=== PATIENT | female | born 1995 | race Caucasian/White ===

== ENCOUNTER → 2019-09-30 | Outpatient (CLI) | payer MEDICAID, SELFPAY ==
[2019-09-30 17:56] LABS: Color, Urine Yellow (Yellow); Glucose, Dipstick Normal (Normal); Ketone-Dipstick Negative (Negative); Leukocyte Esterase-Dipstick Negative /ul (Negative); Nitrite-Dipstick Negative (Negative); Occult Blood-Urine Negative /ul (Negative); Protein-Dipstick Negative (Negative); Urine Bilirubin Dipstick Negative (Negative); Urine Clarity Sl. Cloudy (Clear); Urine Urobilinogen Normal (Normal)
[2019-09-30 18:01] LABS: Absolute Neutrophil Count 6.7 X10^3/uL (2.0-7.7); Basophil# 0.06 X10^3/uL; Basophil% 0.6 % (0-1); Eosinophil# 0.32 X10^3/uL; Hematocrit 40.6 % (37-47); Hemoglobin 13.8 g/dL (12.0-15.0); Lymphocyte % 25.3 % (19-41); Mean Corpuscular Hgb 30.9 pg (27.0-32.0); Mean Platelet Vol. 9.5 fl (6.2-12.0); Monocyte# 0.87 X10^3/uL; Monocyte% 8.1 % (0-10); NRBC Flagged by Analyzer 0 % (0-5); Neutrophil # 6.69 X10^3/uL (2.7-7.7); Neutrophil % 62.6 % (47-70); Platelet Count 265 K/mm3 (150-450); RBC Distribution Width CV 12.7 % (11.6-14.6); RBC Distribution Width SD 41.4 fl (35.1-43.9); Red Blood Count 4.46 M/mm3 (4.2-5.4); White Blood Count 10.7 K/mm3 (4.4-11.0)
[2019-09-30 18:13] LABS: Amphetamine Urine VISTA NEGATIVE (<1000 ng/mL); Barbiturate Urine VISTA NEGATIVE (< 200 ng/mL); Benzodiazepine Urine VISTA NEGATIVE (< 200 ng/mL); Cocaine Urine VISTA NEGATIVE (< 300 ng/mL); Ecstacy Urine VISTA NEGATIVE (< 500 ng/mL); Methadone Urine VISTA NEGATIVE (< 300 ng/mL); PCP Urine VISTA NEGATIVE (< 25 ng/mL); THC Urine VISTA POSITIVE (< 50 ng/mL); Vista UDS pH Range 6
[2019-09-30 18:21] LABS: Thyroid Stim Hormone (TSH) 0.71 uIU/mL (0.358-3.74)
[2019-09-30 19:43] LABS: Chlamydia Trachomatis by PCR Negative (Negative); Neisserai gonorrhoeae by PCR Negative (Negative); Probe Check PASS; Sample Adequacy Control PASS; Specimen Processing Control PASS
[2019-10-01 08:49] LABS: HIV - WCH Non-Reactive (Nonreactive); Hepatitis B Surface Antigen Non-Reactive (Nonreactive); Hepatitis C Antibody Non-Reactive (Nonreactive); Progesterone Level 38.55 ng/mL (See Comment); Rubella IgG 41.1 IU/mL
[2019-10-07 08:05] LABS: Prenatal RPR NONREACTIVE (NONREACTIVE)
== END | disposition home or self-care (01) ==
PROVIDERS: Referring Provider Obstetrics & Gynecology; Visit Provider Obstetrics & Gynecology
DX: Z34.82 Encounter for supervision of other normal pregnancy, second trimester (principal); Z11.3 Encounter for screening for infections with a predominantly sexual mode of transmission
CPT/HCPCS: 80307; 81002; 84144; 84443; 85025; 86703; 86762; 86803; 87340; 87491; 87591

== ENCOUNTER → 2020-01-12 15:16 | Outpatient (CLI) | payer MEDICAID, SELFPAY ==
[2020-01-12 17:31] LABS: Hematocrit 32.8 % (37-47); Hemoglobin 10.5 g/dL (12.0-15.0); Mean Corpuscular Hgb 30.3 pg (27.0-32.0); Mean Corpuscular Volume 94.5 fL (81-99); Mean Platelet Vol. 9.9 fl (6.2-12.0); Platelet Count 261 K/mm3 (150-450); RBC Distribution Width SD 41.2 fl (35.1-43.9); Red Blood Count 3.47 M/mm3 (4.2-5.4); White Blood Count 9.9 K/mm3 (4.4-11.0)
[2020-01-12 17:54] LABS: Glucose Challenge Gest 1H 50g 83 mg/dL (70-140)
== END ==
PROVIDERS: Visit Provider Obstetrics & Gynecology
DX: Z34.83 Encounter for supervision of other normal pregnancy, third trimester (principal)
CPT/HCPCS: 36415; 82950; 85027

== ENCOUNTER → 2020-03-31 17:51 | Outpatient (CLI) | payer MEDICAID, SELFPAY | PROVIDERS: PCP Specialist; Referring Provider Student in an Organized Health Care Education/Training Program; Visit Provider Student in an Organized Health Care Education/Training Program | DX: Z11.59 Encounter for screening for other viral diseases (principal) | CPT/HCPCS: C9803 ==

== ENCOUNTER → 2020-04-12 17:40 | Outpatient (CLI) | payer MEDICAID, SELFPAY | PROVIDERS: PCP Specialist; Visit Provider Student in an Organized Health Care Education/Training Program | DX: Z03.818 Encounter for observation for suspected exposure to other biological agents ruled out (principal) | CPT/HCPCS: 87635; C9803; U0003 ==

== ENCOUNTER 2020-04-17 10:50 | Inpatient (IN) | payer MEDICAID, SELFPAY ==
[2020-04-17] VITALS (30 sets, daily range): BP systolic 99–129; BP diastolic 53–74; PULSE 71–107; TEMP 36.8–37.8; O2SAT 95–100; BMI 26.8
[2020-04-17 12:21] LABS: Absolute Lymphocyte Count 1.75 X10^3/uL (0.83-4.51); Absolute Neutrophil Count 5.7 X10^3/uL (2.0-7.7); Basophil# 0.03 X10^3/uL; Basophil% 0.3 % (0-1); Eosinophil# 0.12 X10^3/uL; Eosinophils% 1.4 % (0-5); Hematocrit 33.4 % (37-47); Hemoglobin 10.3 g/dL (12.0-15.0); Lymphocyte # 1.75 X10^3/ul (4.0); Lymphocyte % 20.3 % (19-41); Mean Corp Hgb Conc 30.8 g/dL (32-36); Mean Corpuscular Hgb 26.3 pg (27.0-32.0); Mean Corpuscular Volume 85.2 fL (81-99); Mean Platelet Vol. 10.4 fl (6.2-12.0); Monocyte# 0.96 X10^3/uL; Monocyte% 11.1 % (0-10); NRBC Flagged by Analyzer 0 % (0-5); Neutrophil # 5.72 X10^3/uL (2.7-7.7); Neutrophil % 66.6 % (47-70); Platelet Count 257 K/mm3 (150-450); RBC Distribution Width CV 13.3 % (11.6-14.6); RBC Distribution Width SD 41.3 fl (35.1-43.9); Red Blood Count 3.92 M/mm3 (4.2-5.4); White Blood Count 8.6 K/mm3 (4.4-11.0)
[2020-04-17] MEDS: Oxytocin 30 units/NS 500 ml 30 UNITS/500 ML IV.SOLN IV (12:55)
[2020-04-17] MEDS: Lactated Ringers 1,000 ML 50 ML IV (12:55)
--- NOTE | 2020-04-17 13:00 | HP.PCM_ITS ---
History and Physical Date of Admission: 04/17/20 History of Present Illness 24 yo at 41/6w, with MARTIN 04/04/20 by LMP, presents for induction of labor. Denies VB, LOF, or regular contractions. +FM. Denies REVELES, vision changes, chest pain, dyspnea, nausea/emesis. This is complicated by: nothing Obstetrical History G1: FT G2: current _ Past Medical History Denies Medications PNV Past Surgical History Denies Social History Tobacco use: Denies Alcohol use: Denies Illicit drug use: Denies, pos THC on new OB visit Labs Blood type: A pos Rubella: immune Hep B: neg HIV: neg RPR: nonreactive GBS: neg 03/08, Allergies NKDA Review of Systems General: alert and oriented HEENT: _denies change of vision Heart/lungs: _denies CP, SOB GI: _denies nausea, vomiting, dysuria, diarrhea MSK: _denies calf pain, tenderness Physical Exam Vital Signs Temp Pulse BP Pulse Ox 04/17/20 12:32 84 97 04/17/20 12:27 91 97 04/17/20 12:22 98.8 F 94 99/55 L 95 General: a&o x3, NAD HEENT: normocephalic, atraumatic Cardio: no JVD Resp: no increased work in breathing Abdomen: soft, gravid, nontender Extremities: minimal edema CE: 4/60/-2 FHT: baseline 140s/mod variability/ + accels / - decels [place]: quiet Labs Laboratory Results 04/17/20 11:55 WBC 8.6 RBC 3.92 L Hgb 10.3 L Hct 33.4 L MCV 85.2 MCH 26.3 L MCHC 30.8 L RDW Std Deviation 41.3 RDW Coeff of Doc 13.3 Plt Count 257 MPV 10.4 Immature Gran % (Auto) 0.300 Neut % (Auto) 66.6 Lymph % (Auto) 20.3 [place] % (Auto) 11.1 H Eos % (Auto) 1.4 Baso % (Auto) 0.3 Absolute Neuts (auto) 5.7 Absolute Lymphs (auto) 1.75 Nucleated RBC % 0 COVID negative Assessment & Plan 24 yo at 41/6w, with MRATIN 04/04/20 by LMP, presents for induction of labor. Uncomplicated . Admit to L&D - Routine labor orders - Pitocin induction - GBS neg 03/08, . Will get rapid GBS now - CEFM -Does not desire epidural
[2020-04-17 15:08] LABS: Amphetamine Urine VISTA NEGATIVE (<1000 ng/mL); Barbiturate Urine VISTA NEGATIVE (< 200 ng/mL); Benzodiazepine Urine VISTA NEGATIVE (< 200 ng/mL); Cocaine Urine VISTA NEGATIVE (< 300 ng/mL); Ecstacy Urine VISTA NEGATIVE (< 500 ng/mL); Methadone Urine VISTA NEGATIVE (< 300 ng/mL); PCP Urine VISTA NEGATIVE (< 25 ng/mL); THC Urine VISTA NEGATIVE (< 50 ng/mL); Vista UDS pH Range 6
[2020-04-17 16:21] LABS: Group B Strep DNA By PCR Negative (Negative); Internal Control PASS; Probe Check PASS; Specimen Processing Control PASS
[2020-04-17] MEDS: Lactated Ringers 500 ML 999 ML IV (20:58)
[2020-04-17] MEDS: Oxytocin 30 units/NS 500 ml 30 UNITS/500 ML IV.SOLN 334 UNITS IV (21:21)
--- NOTE | 2020-04-17 21:44 | PCM.OPRPT ---
Vaginal Delivery Maternal Presentation: Medically Indicated Induction Method of Induction: Pitocin Medical Reason for Induction: - - Post dates Amniotic Membrane Rupture Type: Artificial Amniotic Fluid Description: Lightly stained meconium Final MARTIN: 04/04/20 Gestational age: 41 Weeks and 6 Days Date of Procedure: 04/17/20 Pre-Operative Diagnosis: Macias IUP at 41/6w Post-Operative Diagnosis: Macias IUP at 41/6w Surgery/ Procedure Performed: Spontaneous Vaginal Delivery Type of Anesthesia: - - Nitrous oxide Description of Procedure: Spontaneous vaginal delivery of viable male. Nuchal cord x1 loose, reduced. Baby to mom. Cord clamped and cut. Spontaneous delivery of placenta. Second degree laceration repaired in usual fashion after lidocaine injected. EBL 400cc. APGARS 8/9. Cord Vessel Description: 3 Vessels Infant A gender: Male
--- NOTE | 2020-04-17 21:48 | DCINST_ITS ---
<Mariano Anderson - Last Filed: 04/18/20 08:05> Additional Instructions: If you experience any of the following, contact your healthcare provider. * Bleeding that soaks a pad every hour for 2 hours * Fever 100.4 or higher * Unrelieved incision or abdominal pain * Swelling, redness, discharge or bleeding from your incision or epis iotomy site * Your incision begins to separate * Problems urinating (including inability to urinate or burning while urinating). * Visual changes * Severe headache * Flu-like symptoms * Pain or redness in one of both of your breasts * Pain, warmth, tenderness or swelling in your legs, especially the calf area * Frequent nausea and vomiting * Symptoms of depression or anxiety If you experience any of the following, call 911 or go to the nearest Emergency Room. * Chest pain * Problems breathing * Seizure activity * Partial or complete paralysis of a body part, slurred speech, weakness or drooping of the face, or a sudden inability to walk or hold your balance Allergies/Adverse Reactions: Allergies No Known Allergies Allergy (Verified 04/17/20 12:50) Primary Care Physician: Josie Dunlap MD [Primary Care Provider] - Test Results: Test results from this visit will be discussed in further detail at your follow- up appointment, if applicable. <Minal Anderson - Last Filed: 04/19/20 14:32> Discharge Activity: Return to Normal Activity, May not drive while taking narcotic pain medications., May Shower May resume sexual activity in: 6 weeks Weight Bearing Status: Weight bearing as tolerated Call your doctor if you observe: Fever of 101 or Higher, Inability to urinate, Inability to have a bowel movement, Using more than one pad per hour, Shortness of breath, Dizziness, Calf discomfort Additional Instructions: If you experience any of the following, contact your healthcare provider. * Bleeding that soaks a pad every hour for 2 hours * Fever 100.4 or higher * Unrelieved incision or abdominal pain * Swelling, redness, discharge or bleeding from your incision or episiotomy site * Your incision begins to separate * Problems urinating (including inability to urinate or burning while urinating). * Visual changes * Severe headache * Flu-like symptoms * Pain or redness in one of both of your breasts * Pain, warmth, tenderness or swelling in your legs, especially the calf area * Frequent nausea and vomiting * Symptoms of depression or anxiety If you experience any of the following, call 911 or go to the nearest Emergency Room. * Chest pain * Problems breathing * Seizure activity * Partial or complete paralysis of a body part, slurred speech, weakness or drooping of the face, or a sudden inability to walk or hold your balance Please Follow Up With: Minal Anderson, When: 2 week telehealth visit, 6 week in person PP visit Test Results: Test results from this visit will be discussed in further detail at your follow- up appointment, if applicable.
--- NOTE | 2020-04-17 21:48 | PCM.DCVAG ---
<Mariano Anderson - Last Filed: 04/18/20 08:05> Additional Instructions: If you experience any of the following, contact your healthcare provider. Bleeding that soaks a pad every hour for 2 hours Fever 100.4 or higher Unrelieved incision or abdominal pain Swelling, redness, discharge or bleeding from your incision or episiotomy site Your incision begins to separate Problems urinating (including inability to urinate or burning while urinating). Visual changes Severe headache Flu-like symptoms Pain or redness in one of both of your breasts Pain, warmth, tenderness or swelling in your legs, especially the calf area Frequent nausea and vomiting Symptoms of depression or anxiety If you experience any of the following, call 911 or go to the nearest Emergency Room. Chest pain Problems breathing Seizure activity Partial or complete paralysis of a body part, slurred speech, weakness or drooping of the face, or a sudden inability to walk or hold your balance Allergies/Adverse Reactions: Allergies No Known Allergies Allergy (Verified 04/17/20 12:50) Primary Care Physician: Josie Dunlap MD [Primary Care Provider] - Test Results: Test results from this visit will be discussed in further detail at your follow-up appointment, if applicable. <Minal Anderson - Last Filed: 04/19/20 14:32> Discharge Activity: Return to Normal Activity, May not drive while taking narcotic pain medications., May Shower May resume sexual activity in: 6 weeks Weight Bearing Status: Weight bearing as tolerated Call your doctor if you observe: Fever of 101 or Higher, Inability to urinate, Inability to have a bowel movement, Using more than one pad per hour, Shortness of breath, Dizziness, Calf discomfort Additional Instructions: If you experience any of the following, contact your healthcare provider. Bleeding that soaks a pad every hour for 2 hours Fever 100.4 or higher Unrelieved incision or abdominal pain Swelling, redness, discharge or bleeding from your incision or episiotomy site Your incision begins to separate Problems urinating (including inability to urinate or burning while urinating). Visual changes Severe headache Flu-like symptoms Pain or redness in one of both of your breasts Pain, warmth, tenderness or swelling in your legs, especially the calf area Frequent nausea and vomiting Symptoms of depression or anxiety If you experience any of the following, call 911 or go to the nearest Emergency Room. Chest pain Problems breathing Seizure activity Partial or complete paralysis of a body part, slurred speech, weakness or drooping of the face, or a sudden inability to walk or hold your balance Please Follow Up With: Minal Anderson, When: 2 week telehealth visit, 6 week in person PP visit Test Results: Test results from this visit will be discussed in further detail at your follow-up appointment, if applicable.
[2020-04-17] MEDS: Ibuprofen 600 MG Tablet PO (22:29)
[2020-04-17] MEDS: Methylergonovine 0.2 MG/ML Ampul IM (22:56)
[2020-04-17] MEDS: Acetaminophen 500 MG Tablet 1000 MG PO (23:18)
[2020-04-17] MEDS: Ondansetron 4 MG/2 ML Vial IV (23:54)
[2020-04-17] MEDS: 0.9% Saline Lock 10 ML Syringe IV (23:54)
[2020-04-18] VITALS (7 sets, daily range): BP systolic 94–120; BP diastolic 58–68; PULSE 72–89; RESP 16; TEMP 36.8–37.3; O2SAT 98–100
[2020-04-18] MEDS: 0.9% Saline Lock 10 ML Syringe IV (00:40)
--- NOTE | 2020-04-18 01:01 | NURSING ---
pt passed a golf ball sized dark red clot. fundus firm, midline and at U, scant amts of lochia noted after clot expressed, signs and symptoms to report reviewed with pt and fob. both verbalized understanding. will continue to monitor
[2020-04-18] MEDS: Ibuprofen 600 MG Tablet PO ×2 (07:59→16:45)
--- NOTE | 2020-04-18 08:04 | PCM.PN.OB ---
Subjective: No overnight complaints. Pain well controlled. Minimal lochia - Physical Exam Vitals/I&O's: Vital Signs Temp Pulse Resp BP Pulse Ox 98.8 F 72 16 116/68 99 04/18/20 04:43 04/18/20 04:43 04/18/20 04:43 04/18/20 04:43 04/18/20 04:43 Oxygen Delivery Method Room Air Weight: 156 lb 4.924 oz Body Mass Index (BMI) 26.8 Intake and Output for Last 24 Hours 04/16/20 04/17/20 04/18/20 23:59 23:59 23:59 Intake Total 1488.20 / 1488.20 Output Total 300 / 300 Balance 1188.20 / 1188.20 General: Alert, Oriented x3, Cooperative, No apparent distress HEENT: Atraumatic, PERRLA, Normocephalic Oral: Moist Mucosa Neck: Supple, No JVD Abdomen: Soft, Non Tender, - - Fundus firm below umbilicus Extremities: No clubbing, No cyanosis, No edema Neurological: Neuro grossly intact Psych/Mental Status: Normal Affect, Appropriate, Alert and oriented to time, place, person, mood and affect Laboratory Results 04/17/20 11:55: WBC 8.6, RBC 3.92 L, Hgb 10.3 L, Hct 33.4 L, MCV 85.2, MCH 26.3 L, MCHC 30.8 L, RDW Std Deviation 41.3, RDW Coeff of Doc 13.3, Plt Count 257, MPV 10.4, Immature Gran % (Auto) 0.300, Neut % (Auto) 66.6, Lymph % (Auto) 20.3, [place] % (Auto) 11.1 H, Eos % (Auto) 1.4, Baso % (Auto) 0.3, Absolute Neuts (auto) 5.7, Absolute Lymphs (auto) 1.75, Nucleated RBC % 0 04/17/20 11:55: Blood Type A POSITIVE, Antibody Screen NEGATIVE 04/17/20 13:44: Group B Strep DNA Negative, Specimen Comment Not Reportable 04/17/20 14:20: Urine Opiates Screen NEGATIVE, Urine Methadone Screen NEGATIVE, Ur Barbiturates Screen NEGATIVE, Ur Phencyclidine Scrn NEGATIVE, Ur Amphetamines Screen NEGATIVE, U Methamphetamin-MDMA NEGATIVE, U Benzodiazepines Scrn NEGATIVE, Urine Cocaine Screen NEGATIVE, U Cannabinoids Screen NEGATIVE, Ur Drug Screen Comment Current Medications Acetaminophen (Acetaminophen 500 Mg Tablet) 1,000 mg PO Q8H PRN PRN PRN Reason: Pain Score 1-3 Last Admin: 04/17/20 23:18 Dose: 1,000 mg Documented by: Bisacodyl (Bisacodyl 10 Mg Suppository) 10 mg RECTAL UD PRN PRN Reason: If no BM Dibucaine (Dibucaine 30 Gm Tube) 1 applic TOPICAL TID PRN PRN; Protocol PRN Reason: Discomfort Hydrocortisone (Hydrocortisone 2.5% Crm) 1 applic TOPICAL TID PRN PRN; Protocol PRN Reason: Discomfort Ibuprofen (Ibuprofen 600 Mg Tablet) 600 mg PO Q6H PRN PRN PRN Reason: Pain Score 1-3 Last Admin: 04/18/20 07:59 Dose: 600 mg Documented by: Methylergonovine Maleate (Methylergonovine 0.2 Mg/Ml Ampul) 0.2 mg IM X1 PRN PRN Reason: Excess bleeding/uterine atony Last Admin: 04/17/20 22:56 Dose: 0.2 mg Documented by: Ondansetron HCl (Ondansetron 4 Mg/2 Ml Vial) 4 mg IV Q4H PRN PRN PRN Reason: Nausea Last Admin: 04/17/20 23:54 Dose: 4 mg Documented by: Oxycodone HCl (Oxycodone 5 Mg Tablet) 5 - 10 mg PO Q4H PRN PRN PRN Reason: Pain Score 4-10 Senna/Docusate Sodium (Senna/Docusate Sodium 1 Tablet) 1 - 2 tablet PO DAILY PRN PRN PRN Reason: Constipation Simethicone (Simethicone 80 Mg Tablet) 80 mg PO PCHS PRN PRN Reason: Indigestion/Stomach pain Sodium Chloride (0.9% Saline Lock 10 Ml Syringe) 5 - 15 ml IV UD PRN PRN Reason: SALINE FLUSH Last Admin: 04/18/20 00:40 Dose: 10 ml Documented by: Zolpidem Tartrate (Zolpidem Tartrate 5 Mg Tablet) 5 mg PO QHS PRN PRN PRN Reason: Insomnia Medical Necessity - Tobacco Use Smoking Status: Never smoker Assessment/Plan day 1. Breast-feeding. 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
[2020-04-18] MEDS: Acetaminophen 500 MG Tablet 1000 MG PO ×2 (12:53→21:26)
--- NOTE | 2020-04-18 16:27 | CASEMGMT ---
Social Work Assessment Labor and Delivery Unit Date of Referral: 04/18/2020 Time of Referral: 03:15 Referred By: Dr. Navneet Lu Date of Intervention: 04/18/2020 Time of Intervention: 16:27 Reason for Referral: Mother of baby (MOB) positive for THC during . Resources. History obtained from: MOB, nursing staff, chart. Household composition: MOB, Father of baby (FOB), Ana Rosa Muhammad (20 months) and now this , Kit Muhammad have private home together. Patient's parent/guardian status: MOB and FOBAndreas have been together for 5 years. MOB reports that was ?not avoided.? MOB reports to be excited about infant and to have a connection. Medical History: MOB with vaginal delivery at 41 weeks. MOB with history prior to this infant. Infant born on 04/17/2018 with Apgars of 8 and 9 at 1min and 5min. Infant to follow with Dr. Sandip Newberry for pediatric care. MOB with appropriate care. MOB reports plan to breastfeed . Educational Status: MOB denies any issues with comprehension or understanding. Financial Status: MOB denies any financial issues or concerns. FOB works full-time. Infant Supplies: MOB reports to have needed supplies in the home including car seat and crib etc. Childcare/Caregiver(s): MOB is a homemaker and plans to be primary caregiver for children in the home. Elyssium is currently being cared for by MOB?s mother. Transportation: Denies any concerns. Programs/Agencies Involved: History of WIC. MOB not sure if will utilize WIC this . Children Services/Legal Issues: Denies any legal concerns or history of children services involvement. Mental Health History: MOB denies any mental health history. MOB denies any suicidal thoughts/plans/intents or history of. MOB engaged in conversation with this manager social work on depression signs and symptoms. MOB denies history of depression with first . Substance Use History: MOB admits to THC usage ?occasionally? during early due to ?nausea.? MOB reports that Elyssium is still being breastfeed and plans to continue both this and Elyssium. This manager social work broached concern of MOB Elyssium while using THC during . MOB acknowledges that Elyssium would have been exposed to THC when MOB was using during through . When this manager social work broached concern of THC exposure to Elyssium through MOB states ?I mean I guess so.? MOB denies plan or intent to continue to use THC. MOB reports to have not used THC around Elyssium when MOB was using. This manager social work broached topic of safety plan for children in the home if MOB would use THC again. MOB reports plan to not use THC. MOB does report that FOB smokes tobacco and only outside of the home. MOB denies other substance abuse/use. MOB denies any other substance abuse/use for FOB. This manager social work educating MOB on pending meconium tox screen for . Maternal and Drug Screens: MOB with positive tox for THC on 09/30/2019. MOB with negative tox screen on 04/17/2020. Infant with negative urine tox screen on 04/17/2020. Infant with pending meconium. PHQ9: Did not trigger. Family/Social Stressors: Denies any current stressors. Support Systems: MOB reports support from family and friends. MOB reports to feel safe with FOB. Depression and Anxiety/Shaken Baby/Safe Sleeping: MOB provided with [facility] resources and information on depression/Anxiety, Shaken Baby, and Safe Sleeping. MOB responding appropriately to prompts for safe sleeping and shaken baby. ASSESSMENT: Met with MOB and infant in room. MOB holding infant during conversation. MOB reports that FOB was involved during delivery and that FOB currently went home to be with Elyssium. Elyssium and Kit share maternity/paternity. MOB with appropriate and engaged affect. MOB denies any concerns on returning to home. MOB reports connection with infant. MOB gazing often towards infant and reports that is going well. MOB with minimal response when this manager social work speaking about THC exposure to Elyssium through and this in utero. MOB reports to ?occasionally? use THC and to have only used due to nausea in early . MOB reports ?I did not want to take Zofran.? MOB reports to want to be ?wholistic.? MOB aware of concerns and reasons for concerns. Safe Plan of Care for related to substance use: MOB reports plan to no longer use THC as safety plan. PLAN: Children services consult to be completed on next business day due to THC exposure to this and Elyssium. Nursing staff updated on above plan. Produce Team Lead reports to have educated MOB on risk to THC exposure through and that MOB also voiced to Produce Team Lead plan to no longer use THC. Social work to continue to follow. Dominic Shaffer MSW, ALESSANDROS
--- NOTE | 2020-04-18 19:57 | NURSING ---
Pt reports lower BP normal for her
[2020-04-19 01:20] VITALS: BP 102/56; PULSE 72; RESP 16; TEMP 36.8
[2020-04-19] MEDS: Ibuprofen 600 MG Tablet PO (06:37)
[2020-04-19 08:15] VITALS: BP 100/63; PULSE 83; RESP 16; TEMP 37; O2SAT 97
--- NOTE | 2020-04-19 08:32 | PCM.PN.OB ---
Subjective: Denies heavy lochia. Has minimal cramping and well controlled with Tylenol and Motrin. She is . Feels infant, Kit, is latching better today. No complaints. Her and mother in law with assist with childcare at home. Objective: AVSS - Physical Exam Vitals/I&O's: Vital Signs Temp Pulse Resp BP Pulse Ox 98.3 F 72 16 102/56 L 100 04/19/20 01:20 04/19/20 01:20 04/19/20 01:20 04/19/20 01:20 04/18/20 16:55 Oxygen Delivery Method Room Air Weight: 70.9 kg Body Mass Index (BMI) 26.8 Intake and Output for Last 24 Hours 04/17/20 04/18/20 04/19/20 23:59 23:59 23:59 Intake Total 1488.20 / 1488.20 Output Total 300 / 300 300 / 300 Balance 1188.20 / 1188.20 -300 / -300 General: Alert, Oriented x3, Cooperative, No apparent distress HEENT: Atraumatic, Normocephalic Lungs: Clear to auscultation, Normal air movement Cardiovascular: Regular rate, Regular Rhythm, Normal S1, Normal S2 Abdomen: Soft, Non Tender, Non-Distended, - - Fundus firm and nontender Extremities: No edema, No Calf Tenderness Neurological: Neuro grossly intact Psych/Mental Status: Normal Affect, Appropriate, Alert and oriented to time, place, person, mood and affect Current Medications Acetaminophen (Acetaminophen 500 Mg Tablet) 1,000 mg PO Q8H PRN PRN PRN Reason: Pain Score 1-3 Last Admin: 04/18/20 21:26 Dose: 1,000 mg Documented by: Bisacodyl (Bisacodyl 10 Mg Suppository) 10 mg RECTAL UD PRN PRN Reason: If no BM Dibucaine (Dibucaine 30 Gm Tube) 1 applic TOPICAL TID PRN PRN; Protocol PRN Reason: Discomfort Hydrocortisone (Hydrocortisone 2.5% Crm) 1 applic TOPICAL TID PRN PRN; Protocol PRN Reason: Discomfort Ibuprofen (Ibuprofen 600 Mg Tablet) 600 mg PO Q6H PRN PRN PRN Reason: Pain Score 1-3 Last Admin: 04/19/20 06:37 Dose: 600 mg Documented by: Methylergonovine Maleate (Methylergonovine 0.2 Mg/Ml Ampul) 0.2 mg IM X1 PRN PRN Reason: Excess bleeding/uterine atony Last Admin: 04/17/20 22:56 Dose: 0.2 mg Documented by: Ondansetron HCl (Ondansetron 4 Mg/2 Ml Vial) 4 mg IV Q4H PRN PRN PRN Reason: Nausea Last Admin: 04/17/20 23:54 Dose: 4 mg Documented by: Oxycodone HCl (Oxycodone 5 Mg Tablet) 5 - 10 mg PO Q4H PRN PRN PRN Reason: Pain Score 4-10 Senna/Docusate Sodium (Senna/Docusate Sodium 1 Tablet) 1 - 2 tablet PO DAILY PRN PRN PRN Reason: Constipation Simethicone (Simethicone 80 Mg Tablet) 80 mg PO PCHS PRN PRN Reason: Indigestion/Stomach pain Sodium Chloride (0.9% Saline Lock 10 Ml Syringe) 5 - 15 ml IV UD PRN PRN Reason: SALINE FLUSH Last Admin: 04/18/20 00:40 Dose: 10 ml Documented by: Zolpidem Tartrate (Zolpidem Tartrate 5 Mg Tablet) 5 mg PO QHS PRN PRN PRN Reason: Insomnia Medical Necessity - Tobacco Use Smoking Status: Never smoker Assessment/Plan 24yo PPD#2 s/p doing well. -Rh positive - -d/c home today
--- NOTE | 2020-04-19 10:39 | CASEMGMT ---
Social Work Telephone call to [facility], Karey Suggs. Referral made for MOB using THC while Elyssium (20month old at home). This dialysis social worker also reported MOB with positive THC tox screen on 09/30/2019. This dialysis social worker communicated to Karey BEAN's negative tox screen results on admission and infants negative urine and pending meconium. No other risk factors identified for case. Karey aware that MOB and to discharge to home today. PLAN: Continue with plan for infant to discharge to home with MOB, FOB and Elyssium. Dominic Shaffer MSW, ALESSANDROS
[2020-04-19] MEDS: Acetaminophen 500 MG Tablet 1000 MG PO (10:52)
== END 2020-04-19 12:05 | disposition home or self-care (01) | DRG 560 ==
PROVIDERS: Admitting Provider Student in an Organized Health Care Education/Training Program; PCP Specialist; Referring Provider Student in an Organized Health Care Education/Training Program; Visit Provider Student in an Organized Health Care Education/Training Program
DX: O48.0 Post-term pregnancy (principal); Z37.0 Single live birth; Z3A.41 41 weeks gestation of pregnancy; P03.82 Meconium passage during delivery; O69.81X0 Labor and delivery complicated by cord around neck, without compression, not applicable or unspecified; O70.1 Second degree perineal laceration during delivery
CPT/HCPCS: 59025; 59050; 80307; 85025; 86850; 86900; 86901; 87081; 87653; 99218; J7120; A4216; G0378; J2405

== ENCOUNTER → 2020-05-29 | Outpatient (CLI) | payer MEDICAID, SELFPAY ==
[2020-04-17 12:00] VITALS: BMI 26.8
[2020-06-01 12:37] LABS: HPV Reflexed? NOT INDICATED
== END | disposition home or self-care (01) ==
LOC: LABSPEC 13:21
PROVIDERS: PCP Specialist; Visit Provider Student in an Organized Health Care Education/Training Program
DX: Z12.4 Encounter for screening for malignant neoplasm of cervix (principal)
CPT/HCPCS: 88175; G0145

== ENCOUNTER 2021-06-07 20:01 | Emergency (ER) | payer MEDICAID, SELFPAY ==
[2021-06-07 20:02] VITALS: BP 114/78; PULSE 94; RESP 18; TEMP 36.6; O2SAT 98; BMI 19.5
--- NOTE | 2021-06-07 20:07 | ED.RN ---
ATTEMPT TO CALL RT FOR EKGX3 AND RANG BUSY.ALVIN DUONG AWARE.
--- NOTE | 2021-06-07 20:36 | EKG12_ITS ---
Test Reason : CP Blood Pressure : / mmHG Vent. Rate : 098 BPM Atrial Rate : 098 BPM P-R Int : 124 ms QRS Dur : 086 ms QT Int : 342 ms P-R-T Axes : 071 081 038 degrees QTc Int : 436 ms Normal sinus rhythm Normal ECG When compared with ECG of 07-JUN-2021 20:35, MANUAL COMPARISON REQUIRED, DATA IS UNCONFIRMED Confirmed by TED MCCULLOUGH, DOYLE ([id number]), deputy editor in chief ELENA RINCON ([id number]) on 06/15/2021 7:54:45 AM Referred By: EARLENE Confirmed By:KATIE JEAN MD
--- NOTE | 2021-06-07 20:44 | EKG12_ITS ---
Test Reason : CP Blood Pressure : / mmHG Vent. Rate : 096 BPM Atrial Rate : 096 BPM P-R Int : 126 ms QRS Dur : 088 ms QT Int : 368 ms P-R-T Axes : 071 082 048 degrees QTc Int : 464 ms Normal sinus rhythm with sinus arrhythmia Normal ECG Confirmed by ELIZABETH MCCULLOUGH, ALYSSA ([id number]), film editor supervisor ARAVIND KENNEDY ([id number]) on 06/11/2021 10:24:04 AM Referred By: BB Confirmed By:ALYSSA JOHNSON MD
--- NOTE | 2021-06-07 20:45 | ED.VIS.CHEST ---
HPI History of Present Illness Chief Complaint: Chest Pain Informant: patient Onset/Context/Timing Onset: Hours (3) Activity at onset: sudden, onset, activity on onset and rest Timing: Continuous Quality: Positive for Heaviness and Tightness Location: Left Parasternal (w/ radiation into left mid-arm) Current Severity: Mild (CP gone now, just LUE discomfort present) Maximum Severity: Moderate Worsened By: Nothing; Not Worsened By Breathing Relieved By: Nothing Associated Symptoms: Positive for Nausea (gone), Palpitations (racing at times, not the whole time) and - (malaise all day); Negative for Vomiting, Diaphoresis, Dyspnea, Cough, Fever and Lightheadedness Narrative Narrative: Patient had an episode of chest discomfort yesterday that was short-lived, but today for the past 3 hours it has been there along with left upper extremity discomfort. Never had this before. She had some palpitations feeling like her heart was racing a couple times during this but not the entire time. She denies any feeling of skipping. No lightheadedness, near-syncope, syncope. No recent leg pain or swelling, long travel, hospitalization, surgery, or other reason for mobilization. She does not use any illicit substances. She drinks 2 to 3 cups of coffee every morning, she had none of the symptoms in the last 2 days in the morning. She presents here around 8:30 PM with the symptoms. She has no other medical history. She states one other time she had some upper abdominal/lower chest discomfort that was little different than this, it was around 4-6 weeks , she states she had an EKG that was normal and it never happened again. Later patient states she is actually been having the left arm discomfort intermittently, isolated with no other symptoms, off and on for about a month not infrequently. She does not have a PCP and is in the process of trying to be a new patient at [facility]. [facility] Medical History no medical history no medical history Home Medications omeprazole 20 mg PO DAILY #14 capsule 06/07/21 [Rx Last Taken Unknown] Allergy/AdvReac Type Severity Reaction Status Date / Time No Known Allergies Allergy Verified 06/07/21 20:04 Family History no significant family his Surgical History no surgical history no surgical history Social History Smoking Status: Never smoker ROS ROS ED Constitutional Constitutional ED: Reports other Details: Malaise all day today ; Denies chills or fever(s) Eyes Eyes: Denies change in vision or diplopia ENT ENT ED: Denies rhinorrhea or sore throat Cardiovascular Cardiovascular: Reports as per HPI, chest pain and palpitations Respiratory/Chest Respiratory/Chest: Denies cough or dyspnea Gastrointestinal Gastrointestinal: Reports nausea; Denies abdominal pain, diarrhea or vomiting Genitourinary Genitourinary ED: Denies dysuria or hematuria Musculoskeletal Musculoskeletal: Reports as per HPI and extremity pain; Denies back pain or neck pain Integumentary Denies abscess or rash Neurologic Neurologic: Denies headache(s), paresthesias or weakness Psychiatric Psychiatric: Denies anxiety or suicidal thoughts EXAM Physical Exam Const Vital Signs: 06/07/21 20:02 06/07/21 20:46 06/07/21 21:25 Temperature 98 F Temperature Source Temporal Pulse Rate 94 94 Respiratory Rate 18 22 H Blood Pressure 114/78 103/65 Blood Pressure Mean 90 77 Pulse Ox 98 Oxygen Delivery Method Room Air Room Air Positive well nourished and well developed General Appearance ED: well developed and NAD HEENT Reports moist mucous membranes normocephalic and atraumatic Eyes PERRL and EOMs intact bilaterally Neck full ROM and supple Resp normal respiratory effort and clear to auscultation bilaterally Cardio regular rate, regular rhythm, S1 normal heart sound, S2 normal heart sound, no murmurs and peripheral pulses 2+ throughout Cardio Narrative: Borderline tachycardic. Symmetric radial pulses. GI non-tender and non-distended Auscultation: normoactive bowel sounds Palpation: soft Back/Spine no CVA tenderness General Back: other FROM Extremity normal to inspection and no calf tenderness General Extremety ED: Negative for edema, pulses abnormal or tenderness General Extremity: Negative for edema or pulses abnormal Neuro oriented x3, CN's II-XII intact bilaterally and no sensory deficits noted Sensorium / Orientation: awake and alert Motor Exam: strength 5/5 throughout Skin no rashes or lesions noted and no wounds Heart Score History: Moderately Suspicious ECG: Normal Age: </= 45 years Risk Factors: No Risk Factors Troponin: </= Normal Limit Score: 1 MDM MDM MDM Narrative Medical decision making narrative: Her EKG, troponin, and the rest of her work-up including a D-dimer and chest x-ray are all normal. Given all that, I ordered a GI cocktail to be given to the patient, it was given to her and when I reevaluated her she said unfortunately that the discomfort resolved prior to getting it. Certainly GI etiologies are in the differential here disease including family history. At the same time as she was having palpitations, a Holter monitor may also be a reasonable thing to do. I do not have any here in the hospital to put on her at this time. I also think it would be reasonable to put her on a 2-week trial of a daily PPI and have her follow-up with her doctor, we discussed reasons to return she is comfortable with that overall plan. Lab Data Attestation: I reviewed the patient's lab results. Labs: Laboratory Results - last 24 hr 06/07/21 06/07/21 06/07/21 20:56 20:56 20:56 WBC 9.0 RBC 4.50 Hgb 13.6 Hct 40.6 MCV 90.2 MCH 30.2 MCHC 33.5 RDW Std Deviation 40.3 RDW Coeff of Doc 12.2 Plt Count 284 MPV 9.6 Immature Gran % (Auto) 0.200 Neut % (Auto) 53.9 Lymph % (Auto) 33.3 [place] % (Auto) 9.8 Eos % (Auto) 2.4 Baso % (Auto) 0.4 Absolute Neuts (auto) 4.9 Absolute Lymphs (auto) 3.01 Nucleated RBC % 0 D-Dimer Quant (PE/DVT) 0.37 Sodium 142 Potassium 3.9 Chloride 109 H Carbon Dioxide 26.0 Anion Gap 7 BUN 18 Creatinine 0.71 Estim Creat Clear Calc 100.60 Est GFR (MDRD) Af Amer 130 Est GFR (MDRD) Non-Af 107 BUN/Creatinine Ratio 25.2 H Glucose 96 Calcium 9.2 Troponin I High Sens 4 Radiography Diagnostic Testing: Clinical Impression(s) from Imaging Studies Chest X-Ray 06/07/21 21:06 IMPRESSION: No radiographic evidence of acute cardiopulmonary disease. Electronically Signed: Yoav Patterson MD at 21:24 EST , Service support , Discharge Plan Triage Chief Complaint: Chest Pain ED Provider: Cheko Frances Dx/Rx/DC Orders Clinical Impression: Chest pain Instructions: ED Chest Pain, Uncertain Cause Prescriptions: New omeprazole [omeprazole] 20 MG capsule 20 mg PO DAILY Qty: 14 RF: 0 Primary Care Provider: Care Physician,No Primary Referrals: Kishore Mcmahan MD [STAFF PHYSICIAN] - 1-2 Weeks (Or any of the [facility] physicians) Care Physician,No Primary [Primary Care Provider] - Disposition Disposition: Home, Self Care
[2021-06-07 21:03] LABS: Absolute Lymphocyte Count 3.01 X10^3/uL (0.83-4.51); Absolute Neutrophil Count 4.9 X10^3/uL (2.0-7.7); Basophil# 0.04 X10^3/uL; Basophil% 0.4 % (0-1); Eosinophil# 0.22 X10^3/uL; Eosinophils% 2.4 % (0-5); Hematocrit 40.6 % (37-47); Hemoglobin 13.6 g/dL (12.0-15.0); Lymphocyte # 3.01 X10^3/ul (0.83-4.51); Lymphocyte % 33.3 % (19-41); Mean Corp Hgb Conc 33.5 g/dL (32-36); Mean Corpuscular Hgb 30.2 pg (27.0-32.0); Mean Corpuscular Volume 90.2 fL (81-99); Mean Platelet Vol. 9.6 fl (6.2-12.0); Monocyte# 0.89 X10^3/uL; Monocyte% 9.8 % (0-10); NRBC Flagged by Analyzer 0 % (0-5); Neutrophil # 4.86 X10^3/uL (2.7-7.7); Neutrophil % 53.9 % (47-70); Platelet Count 284 K/mm3 (150-450); RBC Distribution Width CV 12.2 % (11.6-14.6); RBC Distribution Width SD 40.3 fl (35.1-43.9)
--- NOTE | 2021-06-07 21:06 | RAD_ITS ---
EXAM: XR CHEST, 1 VIEW CLINICAL INDICATION: chest pain TECHNIQUE: Frontal view of the chest. This report was created using [employer] report generation technology. COMPARISON: None. FINDINGS: LUNGS AND PLEURAL SPACES: Unremarkable. No consolidation or edema. No pneumothorax. No effusion. HEART: Unremarkable. Cardiac silhouette not enlarged. MEDIASTINUM: Central airways and mediastinal contour are unremarkable. BONES/JOINTS: Unremarkable. SOFT TISSUES: Unremarkable. RAD/Chest 1 View (Portable) IMPRESSION: No radiographic evidence of acute cardiopulmonary disease. Electronically Signed: Yoav Patterson MD at 21:24 EST , Service support ,
[2021-06-07 21:21] LABS: Anion Gap 7 (5-15); BUN 18 mg/dL (7-18); BUN/Creat Ratio 25.2 RATIO (10-20); Calcium,Total 9.2 mg/dL (8.5-10.1); Chloride 109 mmol/L (98-107); Creatinine, Serum 0.71 mg/dL (0.55-1.02); D-Dimer Quantitative (DVT/PE) 0.37 FEU/ug/m (0.27-0.49); EST Glomerular Filtration Rate 107 mL/min (>60); Est Glom Filt Rate - Afr Amer 130 mL/min (>60); Glucose 96 mg/dL (74-106); Potassium 3.9 mmol/L (3.5-5.1); Sodium Level 142 mmol/L (136-145); Troponin-I HS 4 pg/mL (3.0-54.0)
[2021-06-07 21:25] VITALS: BP 103/65; PULSE 94; RESP 22
[2021-06-07] MEDS: Mag Hydrox/Al Hydrox/Simeth 30 ML UDC PO (21:50)
[2021-06-07 22:25] VITALS: BP 104/67; PULSE 85; RESP 16; O2SAT 96
== END 2021-06-07 22:33 | disposition home or self-care (01) ==
PROVIDERS: Emergency Provider Emergency Medicine; Visit Provider Emergency Medicine
DX: R07.89 Other chest pain (principal); R00.2 Palpitations; R11.0 Nausea
CPT/HCPCS: 71045; 80048; 84484; 85025; 85379; 93005; 99285

== ENCOUNTER → 2022-10-10 | Outpatient (CLI) | payer MEDICAID, SELFPAY ==
[2022-10-10 18:10] LABS: Absolute Lymphocyte Count 2.21 X10^3/uL (0.83-4.51); Absolute Neutrophil Count 4.6 X10^3/uL (2.0-7.7); Basophil# 0.04 X10^3/uL; Basophil% 0.5 % (0-1); Eosinophil# 0.13 X10^3/uL; Eosinophils% 1.7 % (0-5); Hematocrit 41.4 % (37-47); Hemoglobin 13.9 g/dL (12.0-15.0); Lymphocyte # 2.21 X10^3/ul (0.83-4.51); Lymphocyte % 28.4 % (19-41); Mean Corp Hgb Conc 33.6 g/dL (32-36); Mean Corpuscular Hgb 30.8 pg (27.0-32.0); Mean Corpuscular Volume 91.8 fL (81-99); Mean Platelet Vol. 10.2 fl (6.2-12.0); Monocyte# 0.81 X10^3/uL; Monocyte% 10.4 % (0-10); NRBC Flagged by Analyzer 0 % (0-5); Neutrophil # 4.58 X10^3/uL (2.7-7.7); Neutrophil % 58.7 % (47-70); Platelet Count 260 K/mm3 (150-450); RBC Distribution Width CV 12.2 % (11.6-14.6); RBC Distribution Width SD 41.2 fl (35.1-43.9); Red Blood Count 4.51 M/mm3 (4.2-5.4); White Blood Count 7.8 K/mm3 (4.4-11.0)
[2022-10-10 18:37] LABS: Vitamin B12 723 pg/mL (211-911)
[2022-10-10 18:39] LABS: Erythrocyte Sedimentation Rate 3 mm/hr (0-30)
[2022-10-10 18:55] LABS: ALB/GLOB Ratio 1.1 RATIO (0.9-2.4); AST(SGOT) 23 U/L (15-37); Alanine Aminotransfer ALT/SGPT 28 U/L (13-56); Albumin, Serum 3.9 g/dL (3.2-5.0); Alkaline Phosphatase 48 U/L (45-117); Anion Gap 4 (5-15); BUN 15 mg/dL (7-18); BUN/Creat Ratio 25.6 RATIO (10-20); CRP < 2.90 mg/L (0.0-3.0); Calcium,Total 9.1 mg/dL (8.5-10.1); Chloride 108 mmol/L (98-107); Creatinine, Serum 0.59 mg/dL (0.55-1.02); EST Glomerular Filtration Rate 133 mL/min (>60); Est Glom Filt Rate - Afr Amer 161 mL/min (>60); Globulin 3.6 g/dL (2.2-4.2); Glucose 86 mg/dL (74-106); Potassium 3.7 mmol/L (3.5-5.1); Protein, Total 7.5 g/dL (6.4-8.2); Sodium Level 139 mmol/L (136-145); Thyroid Stim Hormone (TSH) 0.92 uIU/mL (0.358-3.74)
[2022-10-14 13:07] LABS: ANTINUCLEAR ANTIBODIES DIRECT Negative (Negative)
== END | disposition home or self-care (01) ==
LOC: MFPLAB 15:08
PROVIDERS: PCP Family Medicine; Visit Provider Family Medicine
DX: M79.10 Myalgia, unspecified site (principal)
CPT/HCPCS: 36415; 80053; 82306; 82607; 84443; 85025; 85652; 86038; 86140; 86225; 86235

== ENCOUNTER → 2023-09-16 | Outpatient (CLI) | payer MEDICAID, SELFPAY ==
--- NOTE | 2023-09-16 10:27 | RAD_ITS ---
STUDY: X-RAY - LEFT ELBOW REASON FOR EXAM: Female, 27 years old. ELBOW PAIN TECHNIQUE: 3 views of the left elbow. COMPARISON: None. FINDINGS: Normal visualized humerus, radius and ulna. Normal radiocapitellar and ulnotrochlear articulations. The soft tissue structures are unremarkable. There is no demonstrated fracture. RAD/Elbow min 3 Views IMPRESSION: Normal x-ray examination of the left elbow. Electronically Signed: Nakul Maza MD at 8:25 EDT ,
== END | disposition home or self-care (01) ==
LOC: MTRAD 10:26
PROVIDERS: PCP Family Medicine; Referring Provider Family Medicine; Visit Provider Family Medicine
DX: M25.529 Pain in unspecified elbow (principal)
CPT/HCPCS: 73080